=== PATIENT | male | born 1955 | race Caucasian/White ===

== ENCOUNTER 2016-06-04 23:26 | Observation (INO) | payer MEDICARE ==
[~2016-06-04] VITALS: Ht 185.4 cm; Wt 98.0 kg
[2016-06-04 23:29] VITALS: BP 176/86; PULSE 88; RESP 16; TEMP 98.6; O2SAT 97
[2016-06-05] VITALS (9 sets, daily range): BP systolic 152–177; BP diastolic 81–98; PULSE 70–89; RESP 16–20; TEMP 97.7–99; O2SAT 94–100
[2016-06-05 00:58] LABS: AUTOMATED NEUTROPHIL # 3.8 TH/MM3 (1.8-7.7); BASOPHIL % 0.8 % (0.0-2.0); EOSINOPHIL # 0.2 TH/MM3 (0-0.4); EOSINOPHIL % 3.6 % (0.0-4.0); HEMATOCRIT 41.4 % (39.0-51.0); HEMO FLAGS DIFF FINAL; LYMPH % 8.6 % (9.0-44.0); LYMPHOCYTE # 0.4 TH/MM3 (1.0-4.8); MEAN CELL VOLUME 79.3 FL (80.0-100.0); MEAN CORPUSCULAR HEMOGLOBIN 27.7 PG (27.0-34.0); MEAN CORPUSCULAR HGB CONC 34.9 % (32.0-36.0); MONO % 9.2 % (0.0-8.0); NEUT % 77.8 % (16.0-70.0); PLATELET COUNT 170 TH/MM3 (150-450); RED BLOOD COUNT 5.22 MIL/MM3 (4.50-5.90); RED CELL DISTRIBUTION WIDTH 13.5 % (11.6-17.2); WHITE BLOOD COUNT 4.9 TH/MM3 (4.0-11.0)
--- NOTE | 2016-06-05 00:58 | PD ---
HPI Chief Complaint: Chest Pain Time Seen by Provider: 00:14 Travel History International Travel<30 days: No Contact w/Intl Traveler<30days: No Traveled to known affect area: No History of Present Illness HPI The patient is a 60 year old male who presents to the [facility] emergency department with a history of yesterday beginning to have subjective fever, chills, generalized weakness, and malaise. He reports having associated body aches. He reports that today while he was moving some furniture he began to have chest pressure and shortness of breath. He reports that the chest pressure was constant. He reports that he felt weak all over. The patient reports that he year ago he relapsed and has been using IV methamphetamine. He reports that 4 days ago he also had a root canal on the left maxillary molar. He denies being on antibiotic related to this. 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 The patient denies having any cough, congestion, rhinorrhea, sore throat, vomiting, or diarrhea. He reports that his urine has been slightly darker than usual, however he has been increasing his fluid intake. He denies having dysuria, hematuria, urinary urgency or frequency. He denies having any abdominal pain or vomiting. The patient denies any rashes, neck pain, joint swelling, or neurologic symptoms. The patient reports that it possibly 3 hours prior to arrival he did take a BC powder and his symptoms resolved an hour ago. [facility] Past Medical History Narrative Medical The patient's past medical history is significant for depression, hypertension, hyperlipidemia, attention deficit hyperactivity disorder, IV methamphetamine use. Depression: Yes High Cholesterol: Yes Hypertension: Yes Tetanus Vaccination: > 5 Years Influenza Vaccination: No Past Surgical History Narrative Surgical The patient's past surgical history is reportedly none. Surgical History: No Previous Surgery Social History Alcohol Use: Yes (occ) Tobacco Use: Yes (oral tobacco use) Substance Use: Yes (Meth iv pt states 25 years clean until about a year ago) Allergies-Medications (Allergen,Severity, Reaction): Coded Allergies: Propofol (Verified Allergy, Severe, Anaphylaxis, 06/05/16) Review of Systems Except as stated in HPI: all other systems reviewed are Neg General / Constitutional: Positive: Fever, Chills Eyes: No: Visual changes HENT: No: Headaches Cardiovascular: Positive: Chest Pain or Discomfort, Dyspnea on exertion Respiratory: No: Shortness of Breath Gastrointestinal: No: Nausea, Vomiting, Diarrhea, Abdominal Pain Genitourinary: Positive: Decreased Urinary Output, No: Urgency, Frequency, Dysuria, Flank Pain Musculoskeletal: Positive: Myalgias, No: Pain Skin: No Rash Neurologic: No: Weakness, Focal Abnormalities, Change in Mentation, Slurred Speech, Sensory Disturbance Psychiatric: No: Depression Endocrine: No: Polydipsia Hematologic/Lymphatic: No: Easy Bruising Physical Exam Narrative General: The patient is a well-developed well-nourished male in no acute distress. Head and Neck exam: Head is normocephalic atraumatic. Eyes: EOMI, pupils are equal round and reactive to light. Nose: Midline septum with pink mucous membranes Mouth: Dentition unremarkable. On examination of the area of interest, the left maxilla, he points to a molar that recently had a root canal. There is no bernardino abscess formation, no surrounding erythema or edema noted. No tenderness to palpation. Moist mucus membranes. Posterior oropharynx is not erythematous. No tonsillar hypertrophy. Uvula midline. Airway patent. Neck: No palpable lymphadenopathy. No nuchal rigidity. No thyromegaly. Cardiovascular: Regular rate and rhythm without murmurs, gallops, or rubs. Lungs: Clear to auscultation bilaterally. No wheezes, rhonchi, or rales. Abdomen: Soft, without tenderness to palpation in all 4 quadrants of the abdomen. No guarding, rebound, or rigidity. Normal bowel sounds are audible. Extremities: No clubbing, cyanosis, or edema. 2+ pulses in all 4 extremities. Back: No spinous process tenderness to palpation. No costovertebral angle tenderness to palpation. Neurologic Exam: Grossly nonfocal. Skin Exam: No rash noted. Intact skin that is warm and dry. Data Data Last Documented VS Vital Signs Date Time Temp Pulse Resp B/P Pulse Ox O2 Delivery O2 Flow Rate FiO2 06/05/16 00:09 18 100 Room Air 06/04/16 23:29 98.6 88 176/86 Orders Electrocardiogram (06/05/16 00:14) Complete Blood Count With Diff (06/05/16 00:14) Comprehensive Metabolic Panel (06/05/16 00:14) Creatine Kinase (Cpk) (06/05/16 00:14) Ckmb (Isoenzyme) Profile (06/05/16 00:14) Troponin I (06/05/16 00:14) B-Type Natriuretic Peptide (06/05/16 00:14) Prothrombin Time / Inr (Pt) (06/05/16:14) Act Partial Throm Time (Ptt) (06/05/16:14) C-Reactive Protein (Crp) (06/05/16 00:14) Lipase (06/05/16:14) Urinalysis - C+S If Indicated (06/05/16:14) Westergren Sedimentation Rate (06/05/16:14) Magnesium (Mg) (06/05/16 00:14) Chest, Single Ap (06/05/16:14) Iv Access Insert/Monitor (06/05/16:14) Ecg Monitoring (06/05/16:14) Oximetry (06/05/16:14) Drug Screen, Random Urine (06/05/16:14) Lactic Acid Sepsis Protocol (06/05/16 00:14) Blood Culture (06/05/16 00:14) Sodium Chlor 0.9% 1000 Ml Inj (Ns 1000 M (06/05/16 01:00) Vancomycin Inj (Vancomycin Inj) (06/05/16 01:00) Piperacil-Tazo 3.375 Gm Premix (Zosyn 3. (06/05/16 01:00) Sodium Chlorid 0.9% 500 Ml Inj (Ns 500 M (06/05/16 02:15) Admit Order (Ed Use Only) (06/05/16 02:25) Us Abdomen Gallbladder (06/05/16 02:25) Labs Laboratory Tests Test 06/05/16 00:45 White Blood Count 4.9 TH/MM3 Red Blood Count 5.22 MIL/MM3 Hemoglobin 14.5 GM/DL Hematocrit 41.4 % Mean Corpuscular Volume 79.3 FL Mean Corpuscular Hemoglobin 27.7 PG Mean Corpuscular Hemoglobin 34.9 % Concent Red Cell Distribution Width 13.5 % Platelet Count 170 TH/MM3 Mean Platelet Volume 6.8 FL Neutrophils (%) (Auto) 77.8 % Lymphocytes (%) (Auto) 8.6 % Monocytes (%) (Auto) 9.2 % Eosinophils (%) (Auto) 3.6 % Basophils (%) (Auto) 0.8 % Neutrophils # (Auto) 3.8 TH/MM3 Lymphocytes # (Auto) 0.4 TH/MM3 Monocytes # (Auto) 0.4 TH/MM3 Eosinophils # (Auto) 0.2 TH/MM3 Basophils # (Auto) 0.0 TH/MM3 CBC Comment DIFF FINAL Differential Comment Erythrocyte Sedimentation Rate 12 mm/hr Prothrombin Time 11.9 SEC Prothromb Time International 1.1 RATIO Ratio Activated Partial 29.8 SEC Thromboplast Time Sodium Level 137 MEQ/L Potassium Level 3.9 MEQ/L Chloride Level 104 MEQ/L Carbon Dioxide Level 25.1 MEQ/L Anion Gap 8 MEQ/L Blood Urea Nitrogen 8 MG/DL Creatinine 0.95 MG/DL Estimat Glomerular Filtration 81 ML/MIN Rate Random Glucose 111 MG/DL Lactic Acid Level 1.9 mmol/L Calcium Level 8.4 MG/DL Magnesium Level 2.3 MG/DL Total Bilirubin 1.5 MG/DL Aspartate Amino Transf 453 U/L (AST/SGOT) Alanine Aminotransferase 541 U/L (ALT/SGPT) Alkaline Phosphatase 97 U/L Total Creatine Kinase 90 U/L Troponin I LESS THAN 0.02 NG/ML C-Reactive Protein 7.30 MG/DL B-Type Natriuretic Peptide 10 PG/ML Total Protein 6.9 GM/DL Albumin 3.3 GM/DL Lipase 99 U/L [facility] Medical Decision Making Medical Screen Exam Complete: Yes Emergency Medical Condition: Yes Medical Record Reviewed: Yes Interpretation(s) Last Impressions Gall Bladder Ultrasound 06/05/16 0225 Signed Impressions: Service Date/Time: Sunday, June 05, 2016 02:58 - CONCLUSION: 1. Hepatic steatosis. 2. The gallbladder is not well-distended. Otherwise, unremarkable exam. Royer Joseph Jr., MD Chest X-Ray 06/05/16 0014 Signed Impressions: Service Date/Time: Sunday, June 05, 2016 00:34 - CONCLUSION: No acute disease. Royer Joseph Jr., MD Differential Diagnosis Endocarditis, versus sepsis of undetermined origin, versus pneumonia, versus pyelonephritis, versus urinary tract infection, versus prostatitis, versus acute coronary syndrome, versus viral syndrome Narrative Course During the course of the patients emergency department visit, the patients history, examination, and differential diagnosis were reviewed with the patient. The patient had IV access obtained and blood work sent for analysis. The patient was placed on a panel monitor with oximetry and blood pressure monitoring. An EKG was done on arrival. The patient's EKG reveals a sinus rhythm heart rate of 82, borderline left axis deviation, no acute ST segment elevation is noted or depression. The patient was provided normal saline a 1 L bolus was given times one. The patient reports that he took BC powder which contains aspirin, earlier today. The patients laboratory studies were reviewed and remarkable for white count 4.9, hemoglobin 14.5, platelets 170 with neutrophils 77.8, sedimentation rate is 12. CMP is remarkable for glucose 111, total bilirubin 1.5, AST 453, ALT 541 , CPK 90, troponin I less than 0.02, C-reactive protein 7.3, lipase 99, PT PTT unremarkable, urinalysis shows 30 protein, 4 urobilinogen, urine drug screen is positive for opiates, amphetamines, cocaine, cannabinoids. Radiology studies were reviewed and remarkable for a chest x-ray that shows no acute abnormality. An ultrasound of the gallbladder was ordered after liver enzymes were noted to be elevated. Ultrasound reveals a hepatic steatosis, gallbladder wall is not well distended, otherwise unremarkable. The patients results were discussed with the patient, including the plan of care. I explained that further testing and/ or monitoring is indicated based on the patients history, examination, and/ or laboratory findings. Therefore, I recommended admission for additional evaluation. The patient expressed understanding and was agreeable with this plan. The patient was admitted to the hospital in stable condition and sent to a bed under the care of the [facility]. Physician Communication Physician Communication The patient's case was discussed with Dr. Tripp who did agree to admit the patient for further evaluation and treatment at this time. Diagnosis Primary Impression: Chest pain Qualified Code: R07.9 - Chest pain, unspecified type Additional Impression: IV drug abuse Admitting Information Admitting Physician Requests: Xuan Cobos MD Jun 05, 2016 00:58
[2016-06-05] MEDS ORDERED: PIPERACIL-TAZO 3.375 GM PREMIX 50 ML IV ONE (01:00)
[2016-06-05] MEDS ORDERED: SODIUM CHLOR 0.9% 1000 ML INJ 1,000 ML IV ONE (01:00)
[2016-06-05] MEDS ORDERED: VANCOMYCIN INJ 1,000 MG in SODIUM CHLOR 0.9% 250 ML INJ 250 ML IV ONE (01:00)
--- NOTE | 2016-06-05 01:01 | RADRPT ---
EXAM DATE/TIME: 06/05/2016 00:34 [facility] COMPARISON: No previous studies available for comparison. INDICATIONS : Fever. MEDICAL HISTORY : Hypertension. SURGICAL HISTORY : None. ENCOUNTER: Initial ACUITY: 2 days PAIN SCORE: 0/10 LOCATION: Bilateral chest FINDINGS: A single view of the chest demonstrates the lungs to be symmetrically aerated without evidence of mas s, infiltrate or effusion. The cardiomediastinal contours are unremarkable. Osseous structures are intact. CONCLUSION: No acute disease. Royer Joseph Jr., MD on June 05, 2016 at 0:59 Board Certified Radiologist. This report was verified electronically.
[2016-06-05 01:19] LABS: ALT (GPT) 541 U/L (12-78); ANION GAP 8 MEQ/L (5-15); AST (GOT) 453 U/L (15-37); BICARBONATE 25.1 MEQ/L (21.0-32.0); BLOOD UREA NITROGEN 8 MG/DL (7-18); CHLORIDE 104 MEQ/L (98-107); GLOMERULAR FILTRATION RATE 81 ML/MIN (>89); MAGNESIUM 2.3 MG/DL (1.5-2.5); POTASSIUM 3.9 MEQ/L (3.5-5.1); SODIUM (NA) 137 MEQ/L (136-145)
[2016-06-05 01:22] LABS: ALKALINE PHOSPHATASE 97 U/L (45-117); TOTAL BILIRUBIN ADULT 1.5 MG/DL (0.2-1.0)
[2016-06-05 01:31] LABS: APTT (PATIENT) 29.8 SEC (24.3-30.1); INTERNATIONAL NORMALIZED RATIO 1.1 RATIO; PROTHROMBIN TIME - PATIENT 11.9 SEC (9.8-11.6)
[2016-06-05 01:41] LABS: CREATINE KINASE 90 U/L (39-308)
[2016-06-05] MEDS ORDERED: SODIUM CHLORID 0.9% 500 ML INJ 500 ML IV ONE (02:15)
[2016-06-05] MEDS ORDERED: BISACODYL 10 MG SUPP RECTAL PRN (02:45)
[2016-06-05] MEDS ORDERED: ACETAMINOPHEN/HYDROcodone 325 MG/5 MG TAB PO PRN (02:45)
[2016-06-05] MEDS ORDERED: SODIUM CHLORIDE 0.9% FLUSH 10 ML FLUSH IV FLUSH PRN (02:45)
[2016-06-05] MEDS ORDERED: ONDANSETRON HCL 4 MG/2 ML VIAL IVP PRN (02:45)
[2016-06-05] MEDS ORDERED: MORPHINE SULFATE 4 MG/ML INJ IV PRN (02:45)
[2016-06-05] MEDS ORDERED: ACETAMINOPHEN 325 MG TAB PO PRN (02:45)
[2016-06-05] MEDS ORDERED: NITROGLYCERIN 2% OINT 1 GM PACKET TOPICAL PRN (03:00)
--- NOTE | 2016-06-05 03:11 | HHI.HP ---
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 Per pt, had root canal 4 days ago, last night noted generalized weakness and subjective fever/chills. Today states he "put some speed in my coffee" this morning, then later was moving furniture and developed chest pain. He is concerned for possible endocarditis. Last IVDU was 2 days ago. No h/o CAD. On arrival, BP 176/86, HR 88, O2 sat 97% on RA, Afebrile. WBC normal, neutrophil count mildly elevated. Chemistry unremarkable except for GFR 81. Lactic Acid 1.9. LFTs elevated, AST 453, ALT 541, ALP 97, total Bili 1.5. He did. Lipase 99. INR 1.1. CXR with no acute findings. Review of Systems Except as stated in HPI: all other systems reviewed are Neg ROS: 14 point review of systems otherwise negative. Past Family Social History Past Medical History PMH: Major Depression, HTN, Hyperlipidemia, ADHD, h/o Alcohol Abuse, Tobacco Abuse and IVDU w/ Methamphetamine Past Surgical History PAST SURGICAL HISTORY: None Allergies: Coded Allergies: Propofol (Verified Allergy, Severe, Anaphylaxis, 06/05/16) Family History PAST FAMILY HISTORY: Reviewed. No h/o DM or CAD Social History PAST SOCIAL HISTORY: History of alcohol abuse, now drinks 1 6pk per week. + Tobacco, +IVDU w/ Methamphetamine Physical Exam Vital Signs Vital Signs Date Time Temp Pulse Resp B/P Pulse Ox O2 Delivery O2 Flow Rate FiO2 06/05/16 00:09 18 100 Room Air 06/04/16 23:29 98.6 88 16 176/86 97 Room Air Physical Exam PE: GENERAL: Very pleasant middle-aged white male in no acute distress. HEENT: PERRLA, EOMI. No scleral icterus or conjunctival pallor. No lid lag or facial droop. CARDIOVASCULAR: Regular rate and rhythm. No obvious murmurs to auscultation. No chest tenderness to palpation. RESPIRATORY: No obvious rhonchi or wheezing. Clear to auscultation. Breath sounds equal bilaterally. GASTROINTESTINAL: Abdomen soft, non-tender, nondistended. BS normal. MUSCULOSKELETAL: Extremities without clubbing, cyanosis, or edema. No obvious deformities. NEUROLOGICAL: Awake, alert and oriented x4. No focal neurologic deficits. Moving both upper and lower extremities spontaneously. Laboratory Laboratory Tests Test 06/05/16 00:45 White Blood Count 4.9 Red Blood Count 5.22 Hemoglobin 14.5 Hematocrit 41.4 Mean Corpuscular Volume 79.3 Mean Corpuscular Hemoglobin 27.7 Mean Corpuscular Hemoglobin 34.9 Concent Red Cell Distribution Width 13.5 Platelet Count 170 Mean Platelet Volume 6.8 Neutrophils (%) (Auto) 77.8 Lymphocytes (%) (Auto) 8.6 Monocytes (%) (Auto) 9.2 Eosinophils (%) (Auto) 3.6 Basophils (%) (Auto) 0.8 Neutrophils # (Auto) 3.8 Lymphocytes # (Auto) 0.4 Monocytes # (Auto) 0.4 Eosinophils # (Auto) 0.2 Basophils # (Auto) 0.0 CBC Comment DIFF FINAL Differential Comment Erythrocyte Sedimentation Rate 12 Prothrombin Time 11.9 Prothromb Time International 1.1 Ratio Activated Partial 29.8 Thromboplast Time Sodium Level 137 Potassium Level 3.9 Chloride Level 104 Carbon Dioxide Level 25.1 Anion Gap 8 Blood Urea Nitrogen 8 Creatinine 0.95 Estimat Glomerular Filtration 81 Rate Random Glucose 111 Lactic Acid Level 1.9 Calcium Level 8.4 Magnesium Level 2.3 Total Bilirubin 1.5 Aspartate Amino Transf 453 (AST/SGOT) Alanine Aminotransferase 541 (ALT/SGPT) Alkaline Phosphatase 97 Total Creatine Kinase 90 Troponin I LESS THAN 0.02 C-Reactive Protein 7.30 B-Type Natriuretic Peptide 10 Total Protein 6.9 Albumin 3.3 Lipase 99 Date/Time Procedure Status Source Growth 06/05/16 01:05 Aerobic Blood Culture Received Blood Peripheral Pending 06/05/16 01:05 Anaerobic Blood Culture Received Blood Peripheral Pending Result Diagram: 06/05/165 06/05/165 Assessment and Plan Problem List: (1) Chest pain ICD Code: R07.9 Status: Acute (2) IVDU (intravenous drug user) ICD Code: F19.90 Status: Acute (3) Febrile ICD Code: R50.9 Status: Acute (4) Elevated LFTs ICD Code: R94.5 Status: Acute Assessment and Plan A/P: 1. Chest Pain: acute onset of chest pain while moving furniture, no recurrent complaints, initial trop negative, EKG w/ no acute findings. Admit for Observation, telemetry, check serial cardiac enzymes, NTG/Morphine prn if needed. Currently chest pain free. 2. IVDU: w/ Methamphetamines, last use 2 days ago, sober x25yrs, recently relapsed. Ativan prn for withdrawal/agitation. 3. Febrile: reports subjective fever/chills at home following root canal, ? transient bacteremia, however w/ h/o IVDU concern for possible endocarditis. Check Echo, follow up Blood Cultures. 4. Elevated LFTs: AST 453, ALT 541, ALP 97, Total Bili 1.5, no previous labs for comparison however reports LFTs likely elevated from previous Alcohol Abuse. With complaints of chest pain and elevated LFTs will check RUQ US for possible cholecystitis. 5. DVT Prophylaxis: SCD/Teds. 6. Social work for d/c planning as needed. Susan Tripp MD Jun 05, 2016 03:10
[2016-06-05] MEDS: SODIUM CHLOR 0.9% 1000 ML INJ 1,000 ML IV SCH ×3 (03:30→20:06)
--- NOTE | 2016-06-05 04:11 | RADRPT ---
EXAM DATE/TIME: 06/05/2016 02:58 [facility] COMPARISON: No previous studies available for comparison. INDICATIONS : Right upper quadratn pain. MEDICAL HISTORY : Hypercholesterolemia. Hypertension. Depression. SURGICAL HISTORY : None. ENCOUNTER: Initial ACUITY: 3 days PAIN SCORE: 7/10 LOCATION: Right upper quadrant MEASUREMENTS: LIVER: 22.1 cm length COMMON DUCT: 5 mm RIGHT KIDNEY: 13.4 x 6.0 x 7.8 cm FINDINGS: LIVER: Liver is diffusely echogenic. No mass or ductal dilatation. Hepatopedal flow within the portal vein. COMMON DUCT: No intraluminal mass or stone visualized. GALLBLADDER: The gallbladder is not well distended. No stones or sludge observed. Unable to accurately assess the gallbladder wall thickness due to the decompressed state of the gallbladder. No surrounding fluid. PANCREAS: The visualized portions are within normal limits. RIGHT KIDNEY: No evidence of hydronephrosis, stone, or mass. CONCLUSION: 1. Hepatic steatosis. 2. The gallbladder is not well-distended. Otherwise, unremarkable exam. Royer Joseph Jr., MD on June 05, 2016 at 4:07 Board Certified Radiologist. This report was verified electronically.
[2016-06-05 04:58] LABS: BACTERIA, URINE RARE /hpf; BLOOD, URINE NEG (NEG); COMMENT (UR) CULT NOT INDICATED; CULTURE IF INDICATED CULT NOT INDICATED; GLUCOSE,URINE TRACE mg/dL (NEG); KETONE, URINE NEG (NEG); MUCUS URINE FEW /lpf (OCC); NITRITE,URINE NEG (NEG); URINE COLOR DARK-YELLOW (YELLW/STRAW)
[2016-06-05 05:04] LABS: AMPHETAMINE, URINE POS (NEG); BARBITURATES, URINE NEG (NEG); COCAINE, URINE POS (NEG)
[2016-06-05 05:41] LABS: HDL CHOLESTEROL 30.9 MG/DL (40.0-60.0); LDL CHOLESTEROL 62 MG/DL (0-99)
[2016-06-05] MEDS: SODIUM CHLORIDE 0.9% FLUSH 10 ML FLUSH IV FLUSH SCH ×2 (08:08→20:06)
[2016-06-05] MEDS: LORazepam 2 MG/ML VIAL IV PUSH PRN ×2 (08:09→22:11)
--- NOTE | 2016-06-05 08:58 | HHI.PR ---
Subjective Remarks Follow up for chest pain, fevers. The patient is seen s/p IV Ativan, now very drowsy, needs to be constantly awakened throughout examination. He reports feeling much better after the IV Ativan. No further episodes of chest pain today. Denies any shortness of breath, leg swelling, or weight gain. He states the "sweats" have improved. No fevers or chills. Still feels slightly tremulous. He uses IV methamphetamine and drinks a 6 pack of beer 3x/week. He has been using drugs for 1.5years now, previously clean for 25years. He has no other medical complaints at this time. Objective Vitals Vital Signs Date Time Temp Pulse Resp B/P Pulse Ox O2 Delivery O2 Flow Rate FiO2 06/05/16 08:26 99.0 81 18 154/81 96 06/05/16 06:32 18 06/05/16 05:23 98.8 89 20 177/91 95 06/05/16 03:34 76 18 162/91 100 Room Air 06/05/16 03:33 100 Room Air 06/05/16 00:09 18 100 Room Air 06/04/16 23:29 98.6 88 16 176/86 97 Room Air I/O 06/04/16 06/04/16 06/04/16 06/05/16 06/05/16 06/05/16 07:00 15:00 23:00 07:00 15:00 23:00 Intake Total 1460 ml Balance 1460 ml Intake Oral 960 ml IV Total 500 ml # Voids 2 Result Diagram: 06/05/16 0045 06/05/16 0045 Imaging Last Impressions Gall Bladder Ultrasound 06/05/165 Signed Impressions: Service Date/Time: Sunday, June 05, 2016 02:58 - CONCLUSION: 1. Hepatic steatosis. 2. The gallbladder is not well-distended. Otherwise, unremarkable exam. Royer Joseph Jr., MD Chest X-Ray 06/05/16 0014 Signed Impressions: Service Date/Time: Sunday, June 05, 2016 00:34 - CONCLUSION: No acute disease. Royer Joseph Jr., MD Objective Remarks GENERAL: Well-nourished, well-developed middle aged male patient in [facility]. SKIN: Warm and dry. No rash. HEENT: Normocephalic. Atraumatic. Pupils equal and round. No scleral icterus. No injection or drainage. Mucous membranes pink and moist. NECK: Supple. Trachea midline. CARDIOVASCULAR: Regular rate and rhythm. S1, S2 noted. No murmur appreciated. RESPIRATORY: No accessory muscle use. Clear to auscultation. Breath sounds equal bilaterally. GASTROINTESTINAL: Abdomen soft, non-tender, nondistended. Normoactive bowel sounds x4. MUSCULOSKELETAL: No obvious deformities. Extremities without clubbing, cyanosis , or edema. NEUROLOGICAL: Awake and alert. No obvious cranial nerve deficits. Motor grossly within normal limits. Normal speech. PSYCHIATRIC: Appropriate mood and affect; insight and judgment normal. Medications and IVs Current Medications Medications (Trade) Dose Ordered Sig/Ji Route Start Time Stop Time Status Last Admin (NS 1000 ml Inj) 1,000 ml @ 100 mls/hr Q10H IV 06/05/16 02:45 06/05/16 03:30 (NS Flush) 2 ml UNSCH PRN IV FLUSH 06/05/16 02:45 (NS Flush) 2 ml BID IV FLUSH 06/05/16 09:00 (Zofran Inj) 4 mg Q6H PRN IVP 06/05/16 02:45 06/05/16 04:36 (Dulcolax Supp) 10 mg DAILY PRN RECTAL 06/05/16 02:45 (Tylenol) 650 mg Q6H PRN PO 06/05/16 02:45 06/05/16 04:52 (Uehling 5-325 Mg) 1 tab Q4H PRN PO 06/05/16 02:45 (Morphine Inj) 2 mg Q3H PRN IV 06/05/16 02:45 (Ativan Inj) 1 mg Q2H PRN IV PUSH 06/05/16 03:00 06/05/16 08:09 (Nitroglycerin 2% Oint) 0.5 inch Q6HR PRN TOPICAL 06/05/16 03:00 Urinary Catheter: No Vascular Central Line Catheter: No A/P Problem List: (1) Chest pain ICD Code: R07.9 Status: Acute (2) IVDU (intravenous drug user) ICD Code: F19.90 Status: Acute (3) Febrile ICD Code: R50.9 Status: Acute (4) Elevated LFTs ICD Code: R94.5 Status: Acute Assessment and Plan 60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 Atypical Chest Pain: acute onset of chest pain while moving furniture, no recurrent complaints. Monitor on telemetry. Check serial cardiac enzymes, first 2 troponins negative, checking 3rd set, EKG with no acute ischemic changes. NTG/Morphine prn if needed. Currently chest pain free. IVDU: w/ Methamphetamines, last use 2 days ago, sober x25yrs, recently relapsed. Ativan prn for withdrawal/agitation. Febrile: reports subjective fever/chills at home following root canal, ? transient bacteremia, however w/ h/o IVDU concern for possible endocarditis. Check Echo, follow up Blood Cultures. Elevated LFTs: AST 453, ALT 541, ALP 97, Total Bili 1.5, no previous labs for comparison however reports LFTs likely elevated from previous Alcohol Abuse. With complaints of chest pain and elevated LFTs, checked RUQ US which showed hepatic steatosis, otherwise unremarkable. Patient with worsening LFTs today, Consult Gastroenterology. Check hepatitis panel. Alcohol Abuse: reportedly drinks a 6 pack of beer 3x/week. Start CIWA protocol. Thiamine/folate/MV. DVT Prophylaxis: SCD/Teds. Marisol Gasca PA-C Jun 05, 2016 08:58
--- NOTE | 2016-06-05 10:34 | EKG ---
Date Performed: 06/05/2016 Time Performed: 00:27:20 PTAGE: 60 years EKG: Sinus rhythm BORDERLINE LEFT AXIS DEVIATION BORDERLINE ECG NO PREVIOUS TRACING DOCTOR: Issac Rutledge Interpretating Date/Time 06/05/2016 10:32:31
[2016-06-05] MEDS ORDERED: LORazepam 1 MG TAB PO PRN (11:00)
[2016-06-05] MEDS ORDERED: FLUMAZENIL 0.5 MG/5 ML VIAL IV PUSH PRN (11:00)
[2016-06-05] MEDS ORDERED: LORazepam 2 MG/ML VIAL IV PUSH PRN ×4 (11:00)
[2016-06-05] MEDS ORDERED: LORazepam 2 MG TAB PO PRN (11:00)
[2016-06-05] MEDS ORDERED: ENALAPRILAT 1.25 MG/ML VIAL IV PUSH PRN (11:00)
[2016-06-05 13:16] LABS: AUTOMATED NEUTROPHIL # 2.6 TH/MM3 (1.8-7.7); EOSINOPHIL # 0.2 TH/MM3 (0-0.4); EOSINOPHIL % 5.5 % (0.0-4.0); HEMATOCRIT 41.2 % (39.0-51.0); HEMO FLAGS DIFF FINAL; LYMPH % 13.8 % (9.0-44.0); LYMPHOCYTE # 0.5 TH/MM3 (1.0-4.8); MEAN CELL VOLUME 80.1 FL (80.0-100.0); MEAN CORPUSCULAR HEMOGLOBIN 27.4 PG (27.0-34.0); MEAN CORPUSCULAR HGB CONC 34.2 % (32.0-36.0); MONO % 14.4 % (0.0-8.0); NEUT % 65.3 % (16.0-70.0); PLATELET COUNT 128 TH/MM3 (150-450); RED BLOOD COUNT 5.14 MIL/MM3 (4.50-5.90); RED CELL DISTRIBUTION WIDTH 13.7 % (11.6-17.2)
[2016-06-05 13:43] LABS: ALKALINE PHOSPHATASE 93 U/L (45-117); ALT (GPT) 721 U/L (12-78); ANION GAP 10 MEQ/L (5-15); AST (GOT) 654 U/L (15-37); BICARBONATE 25.6 MEQ/L (21.0-32.0); BLOOD UREA NITROGEN 6 MG/DL (7-18); CHLORIDE 103 MEQ/L (98-107); GLOMERULAR FILTRATION RATE 104 ML/MIN (>89); POTASSIUM 3.5 MEQ/L (3.5-5.1); SODIUM (NA) 139 MEQ/L (136-145); TOTAL BILIRUBIN ADULT 2.1 MG/DL (0.2-1.0)
--- NOTE | 2016-06-05 15:23 | EC ---
Study Study Date:06/05/2016 STUDY CONCLUSIONS SUMMARY LEFT VENTRICLE: The cavity size was normal. Wall thickness was normal. Systolic function was normal. The estimated ejection fraction was in the range of 60% to 65%. Wall motion was normal; there were no regional wall motion abnormalities. If LV function is below 40, please consider prescribing an ACEI or ARB or document rationale for non-use. PROCEDURE DATA STUDY STATUS: Elective. Procedure: Transthoracic echocardiography. Image quality was good. Scanning was performed from the parasternal, apical, and subcostal acoustic windows. Study completion: The patient tolerated the procedure well. Transthoracic echocardiography. M-mode, complete 2D, complete spectral Doppler, and color Doppler. Patient status: Inpatient. CARDIAC ANATOMY LEFT VENTRICLE: The cavity size was normal. Wall thickness was normal. Systolic function was normal. The estimated ejection fraction was in the range of 60% to 65%. Wall motion was normal; there were no regional wall motion abnormalities. AORTIC VALVE: Trileaflet; normal thickness leaflets. Doppler: Transvalvular velocity was within the normal range. There was no stenosis. No regurgitation. Peak gradient: 11mm Hg (S). AORTA: Aortic root: The aortic root was normal in size. MITRAL VALVE: Structurally normal valve. Doppler: Transvalvular velocity was within the normal range. There was no evidence for stenosis. No regurgitation. LEFT ATRIUM: The atrium was normal in size. RIGHT VENTRICLE: The cavity size was normal. Wall thickness was normal. PULMONIC VALVE: Doppler: Transvalvular velocity was within the normal range. There was no evidence for stenosis. No regurgitation. TRICUSPID VALVE: Structurally normal valve. Doppler: Transvalvular velocity was within the normal range. Trace regurgitation. PULMONARY ARTERY: The main pulmonary artery was normal-sized. Systolic pressure was within the normal range. RIGHT ATRIUM: The atrium was normal in size. PERICARDIUM: There was no pericardial effusion. SYSTEMIC VEINS: Inferior vena cava: The vessel was normal in size. BASIC MEASUREMENTS ADULT NORMAL Left ventricle LV internal dimension, ED, chordal level, 47.1 mm 43-52 PLAX LV internal dimension, ES, chordal level, 33.4 mm 23-38 PLAX Fractional shortening, chordal level, PLAX *29 % >29 LV posterior wall thickness, ED 9.02 mm IVS/LVPW ratio, ED 0.86 <1.3 Ventricular septum Septal thickness, ED 7.79 mm Aortic valve Leaflet separation 21 mm 15-26 Left atrium Anterior-posterior dimension 39 mm Right ventricle RV internal dimension, ED, PLAX 21.1 mm 19-38 BASIC MEASUREMENTS ADULT NORMAL Aortic valve Leaflet separation 21 mm 15-26 Aorta Root diameter, ED *38 mm 20-37 DOPPLER MEASUREMENTS ADULT NORMAL Main pulmonary artery Pressure, S 19 mm Hg =30 Aortic valve Peak velocity, S 167 cm/s Peak gradient, S 11 mm Hg Mitral valve Peak E-wave velocity 66.1 cm/s Peak A-wave velocity 84.4 cm/s Peak E/A ratio 0.8 Tricuspid valve Regurgitant peak velocity 186 cm/s Peak RV-RA gradient, S 14 mm Hg Maximal regurgitant velocity 186 cm/s Systemic veins Estimated CVP 5 mm Hg Right ventricle RV pressure, S 19 mm Hg <30 LEGEND: Mean values are shown as u=mean value. Asterisk (*) gamez values outside specified normal range. Prepared and signed by Paco Gilliland [id number]
--- NOTE | 2016-06-05 17:06 | PD.CONS ---
HPI History of Present Illness This is a 60 year old [gentleman] who came to the ER for chest pains. Pt is poor historian, somnolent, and is unable to further elaborate, citing inability to recall. He says he may have taken a dilaudid before he came to the ER. Denies abdominalpain, n/v, diarrhea, constipation, change in bowel habits, blood in stool. (Ondina Fisher) PFSH Past Medical History PMH: Major Depression, HTN, Hyperlipidemia, ADHD, h/o Alcohol Abuse, Tobacco Abuse and IVDU w/ Methamphetamine Past Surgical History PAST SURGICAL HISTORY: None (Ondina Fisher) Coded Allergies: Propofol (Verified Allergy, Severe, Anaphylaxis, 06/05/16) Medications Allergies Coded Allergies Type Severity Reaction Last Updated Verified Propofol Allergy Severe Anaphylaxis 06/05/16 Yes Family History PAST FAMILY HISTORY: Reviewed. No h/o DM or CAD Social History PAST SOCIAL HISTORY: History of alcohol abuse, now drinks 1 6pk per week. + Tobacco, +IVDU w/ Methamphetamine (Ondina Fisher) Review of Systems Constitutional: COMPLAINS OF: Fever Eyes: DENIES: Blurred vision Ears, nose, mouth, throat: DENIES: Hearing loss Respiratory: DENIES: Hemoptysis Cardiovascular: DENIES: Lower Extremity Edema Gastrointestinal: DENIES: Abdominal pain, Bloody stools, Constipation, Diarrhea , Nausea, Vomiting (pt somnolent and unable to provide much detail) Neurologic: DENIES: Abnormal gait (Ondina Fisher) GI Exam Vitals I&O Vital Signs Date Time Temp Pulse Resp B/P Pulse Ox O2 Delivery O2 Flow Rate FiO2 06/05/16 12:22 98.0 76 16 152/89 94 06/05/16 09:18 77 06/05/16 08:26 99.0 81 18 154/81 96 06/05/16 06:32 18 06/05/16 05:23 98.8 89 20 177/91 95 06/05/16 03:34 76 18 162/91 100 Room Air 06/05/16 03:33 100 Room Air 06/05/16 00:09 18 100 Room Air 06/04/16 23:29 98.6 88 16 176/86 97 Room Air I/O 406/04/16 06/04/16 06/05/16 06/05/16 06/05/16 07:00 15:00 23:00 07:00 15:00 23:00 Intake Total 1460 ml Balance 1460 ml Intake Oral 960 ml IV Total 500 ml # Voids 2 2 Imaging Last Impressions Gall Bladder Ultrasound 06/05/16 0225 Signed Impressions: Service Date/Time: Sunday, June 05, 2016 02:58 - CONCLUSION: 1. Hepatic steatosis. 2. The gallbladder is not well-distended. Otherwise, unremarkable exam. Royer Joseph Jr., MD Chest X-Ray 06/05/16 0014 Signed Impressions: Service Date/Time: Sunday, June 05, 2016 00:34 - CONCLUSION: No acute disease. Royer Joseph Jr., MD Laboratory Test 06/05/16 06/05/16 06/05/16 06/05/16 00:45 04:03 04:45 12:30 White Blood Count 4.9 TH/MM3 4.0 TH/MM3 Red Blood Count 5.22 MIL/MM3 5.14 MIL/MM3 Hemoglobin 14.5 GM/DL 14.1 GM/DL Hematocrit 41.4 % 41.2 % Mean Corpuscular Volume 79.3 FL 80.1 FL Mean Corpuscular Hemoglobin 27.7 PG 27.4 PG Mean Corpuscular Hemoglobin 34.9 % 34.2 % Concent Red Cell Distribution Width 13.5 % 13.7 % Platelet Count 170 TH/MM3 128 TH/MM3 Mean Platelet Volume 6.8 FL 7.5 FL Neutrophils (%) (Auto) 77.8 % 65.3 % Lymphocytes (%) (Auto) 8.6 % 13.8 % Monocytes (%) (Auto) 9.2 % 14.4 % Eosinophils (%) (Auto) 3.6 % 5.5 % Basophils (%) (Auto) 0.8 % 1.0 % Neutrophils # (Auto) 3.8 TH/MM3 2.6 TH/MM3 Lymphocytes # (Auto) 0.4 TH/MM3 0.5 TH/MM3 Monocytes # (Auto) 0.4 TH/MM3 0.6 TH/MM3 Eosinophils # (Auto) 0.2 TH/MM3 0.2 TH/MM3 Basophils # (Auto) 0.0 TH/MM3 0.0 TH/MM3 CBC Comment DIFF FINAL DIFF FINAL Differential Comment Erythrocyte Sedimentation Rate 12 mm/hr Prothrombin Time 11.9 SEC Prothromb Time International 1.1 RATIO Ratio Activated Partial 29.8 SEC Thromboplast Time Sodium Level 137 MEQ/L 139 MEQ/L Potassium Level 3.9 MEQ/L 3.5 MEQ/L Chloride Level 104 MEQ/L 103 MEQ/L Carbon Dioxide Level 25.1 MEQ/L 25.6 MEQ/L Anion Gap 8 MEQ/L 10 MEQ/L Blood Urea Nitrogen 8 MG/DL 6 MG/DL Creatinine 0.95 MG/DL 0.76 MG/DL Estimat Glomerular Filtration 81 ML/MIN 104 ML/MIN Rate Random Glucose 111 MG/DL 111 MG/DL Lactic Acid Level 1.9 mmol/L Calcium Level 8.4 MG/DL 8.6 MG/DL Magnesium Level 2.3 MG/DL Total Bilirubin 1.5 MG/DL 2.1 MG/DL Aspartate Amino Transf 453 U/L 654 U/L (AST/SGOT) Alanine Aminotransferase 541 U/L 721 U/L (ALT/SGPT) Alkaline Phosphatase 97 U/L 93 U/L Total Creatine Kinase 90 U/L Troponin I LESS THAN 0.02 LESS THAN 0.02 LESS THAN 0.02 NG/ML NG/ML NG/ML C-Reactive Protein 7.30 MG/DL B-Type Natriuretic Peptide 10 PG/ML Total Protein 6.9 GM/DL 6.1 GM/DL Albumin 3.3 GM/DL 2.9 GM/DL Lipase 99 U/L Triglycerides Level 150 MG/DL Cholesterol Level 123 MG/DL LDL Cholesterol 62 MG/DL HDL Cholesterol 30.9 MG/DL Cholesterol/HDL Ratio 3.98 RATIO Urine Color DARK-YELLOW Urine Turbidity CLEAR Urine pH 6.0 Urine Specific Waddy 1.026 Urine Protein 30 mg/dL Urine Glucose (UA) TRACE mg/dL Urine Ketones NEG mg/dL Urine Occult Blood NEG Urine Nitrite NEG Urine Bilirubin NEG Urine Urobilinogen 4.0 MG/DL Urine Leukocyte Esterase NEG Urine RBC LESS THAN 1 /hpf Urine WBC 3 /hpf Urine Bacteria RARE /hpf Urine Mucus FEW /lpf Microscopic Urinalysis Comment CULT NOT INDICATED Urine Opiates Screen POS Urine Barbiturates Screen NEG Urine Amphetamines Screen POS Urine Benzodiazepines Screen NEG Urine Cocaine Screen POS Urine Cannabinoids Screen POS Date/Time Procedure Status Source Growth 06/05/16 01:05 Aerobic Blood Culture Received Blood Peripheral Pending 06/05/16 01:05 Anaerobic Blood Culture Received Blood Peripheral Pending Physical Examination HEENT: EOMI; normocephalic; atraumatic; no jaundice. NECK: Neck is supple, no JVD, no lymphadenopathy. CHEST: Chest is clear to auscultation and percussion. CARDIAC: Regular rate and rhythm with no murmur gallop or rubs. ABDOMEN: Soft, obese, nontender; no hepatosplenomegaly; bowel sounds are present in all four quadrants. EXTREMITIES: No clubbing, cyanosis, or edema. SKIN: Diaphoretic; no rash; no jaundice. RN CHRONIC: No focal deficits; alert and oriented times three. (Ondina Fisher) Assessment and Plan Plan ASSESSMENT: - elevated LFTs. tox screen pos for multiple substances so likely related to drug use but will order liver work up to r/o other etiology PLAN: - hepatitis panel - NAS, ASMA, MA - iron studies - US RUQ This pt was seen by myself and Dr Cordon and this note is written on his behalf (Ondina Fisher) Physician Comments Seen and examined with REX, liver baxter initiated. U/S shows fatty liver. Has heavy h/o etoh and drug abuse. Will follow. Thank you (Mahad Cordon MD) Ondina Fisher Jun 05, 2016 17:06 Mahad Cordon MD Jun 05, 2016 18:07
[2016-06-06 00:20] VITALS: BP 149/67; PULSE 73; RESP 20; TEMP 98.6; O2SAT 96
[2016-06-06 04:11] VITALS: BP 160/96; PULSE 67; RESP 20; TEMP 97.9; O2SAT 98
[2016-06-06 05:11] LABS: HEMATOCRIT 41.1 % (39.0-51.0); MEAN CELL VOLUME 79.9 FL (80.0-100.0); MEAN CORPUSCULAR HEMOGLOBIN 28.2 PG (27.0-34.0); MEAN CORPUSCULAR HGB CONC 35.2 % (32.0-36.0); PLATELET COUNT 135 TH/MM3 (150-450); RED BLOOD COUNT 5.14 MIL/MM3 (4.50-5.90); RED CELL DISTRIBUTION WIDTH 13.7 % (11.6-17.2); WHITE BLOOD COUNT 3.4 TH/MM3 (4.0-11.0)
[2016-06-06 05:19] LABS: HEMO FLAGS AUTO DIFF
[2016-06-06 05:40] LABS: FERRITIN 382 NG/ML (26-388); TRANSFERRIN IRON PROFILE 178 MG/DL (200-360)
[2016-06-06 05:46] LABS: ALT (GPT) 908 U/L (12-78); ANION GAP 9 MEQ/L (5-15); AST (GOT) 683 U/L (15-37); BICARBONATE 27.5 MEQ/L (21.0-32.0); BLOOD UREA NITROGEN 8 MG/DL (7-18); CHLORIDE 106 MEQ/L (98-107); GLOMERULAR FILTRATION RATE 90 ML/MIN (>89); POTASSIUM 3.6 MEQ/L (3.5-5.1); SODIUM (NA) 142 MEQ/L (136-145)
[2016-06-06 05:49] LABS: ALKALINE PHOSPHATASE 112 U/L (45-117); TOTAL BILIRUBIN ADULT 1.9 MG/DL (0.2-1.0)
[2016-06-06 07:51] LABS: BANDS 2 % (0-6); BASOPHILS 1 % (0-2); EOSINOPHILS 9 % (0-4); NEUTROPHIL # MANUAL DIFF 1.8 TH/MM3 (1.8-7.7); PLATELET ESTIMATE SMEAR LOW (NORMAL); PLATELET MORPHOLOGY NORMAL (NORMAL); POLYS (SEG NEUTROPHILS) 52 % (16-70); WBC DIFF SAMPLE 100
[2016-06-06 07:52] LABS: SCAN/DIFF FINAL DIFF MANUAL
[2016-06-06 08:26] VITALS: BP 158/93; PULSE 73; RESP 16; TEMP 97.8; O2SAT 95
[2016-06-06] MEDS: SODIUM CHLORIDE 0.9% FLUSH 10 ML FLUSH IV FLUSH SCH (08:40)
[2016-06-06] MEDS: SODIUM CHLOR 0.9% 1000 ML INJ 1,000 ML IV SCH (08:45)
[2016-06-06] MEDS ORDERED: THIAMINE HCL 100 MG TAB PO SCH (09:00)
[2016-06-06] MEDS ORDERED: FOLIC ACID 1 MG TAB PO SCH (09:00)
[2016-06-06] MEDS ORDERED: MULTIVITAMINS/MINERALS THERAPEUTIC TAB PO SCH (09:00)
--- NOTE | 2016-06-06 09:22 | HHI.PR ---
Subjective Remarks Follow up for chest pain. The patient denies any further chest pain. Denies fevers or chills but does report sweats overnight. He is able to tolerate oral intake. Denies abdominal pain. He is interested in alcohol/drug rehab centers. Seen with his sister at bedside. Objective Vitals Vital Signs Date Time Temp Pulse Resp B/P Pulse Ox O2 Delivery O2 Flow Rate FiO2 06/06/16 08:26 97.8 73 16 158/93 95 06/06/16 04:11 97.9 67 20 160/96 98 06/06/16 00:20 98.6 73 20 149/67 96 06/05/16 22:55 78 06/05/16 20:09 98.7 74 20 159/93 97 06/05/16 17:27 97.7 70 16 156/98 97 06/05/16 12:22 98.0 76 16 152/89 94 06/05/16 09:18 77 I/O 06/05/16 06/05/16 06/05/16 06/06/16 06/06/16 06/06/16 07:00 15:00 23:00 07:00 15:00 23:00 Intake Total 1460 ml Balance 1460 ml Intake Oral 960 ml IV Total 500 ml # Voids 2 2 2 Result Diagram: 06/06/16 0359 06/06/16 0359 Imaging Last Impressions Gall Bladder Ultrasound 06/05/16 0225 Signed Impressions: Service Date/Time: Sunday, June 05, 2016 02:58 - CONCLUSION: 1. Hepatic steatosis. 2. The gallbladder is not well-distended. Otherwise, unremarkable exam. Royer Joseph Jr., MD Chest X-Ray 06/05/16 0014 Signed Impressions: Service Date/Time: Sunday, June 05, 2016 00:34 - CONCLUSION: No acute disease. Royer Joseph Jr., MD Objective Remarks GENERAL: Well-nourished, well-developed middle aged male patient in [facility]. SKIN: Warm and dry. Eczematous rash on the face. HEENT: Normocephalic. Atraumatic. Pupils equal and round. No scleral icterus. No injection or drainage. Mucous membranes pink and moist. NECK: Supple. Trachea midline. CARDIOVASCULAR: Regular rate and rhythm. S1, S2 noted. No murmur appreciated. RESPIRATORY: No accessory muscle use. Clear to auscultation. Breath sounds equal bilaterally. GASTROINTESTINAL: Abdomen soft, non-tender, nondistended. Normoactive bowel sounds x4. MUSCULOSKELETAL: No obvious deformities. Extremities without clubbing, cyanosis , or edema. NEUROLOGICAL: Awake and alert. No obvious cranial nerve deficits. Motor grossly within normal limits. Normal speech. PSYCHIATRIC: Appropriate mood and affect; insight and judgment normal. Medications and IVs Current Medications Medications (Trade) Dose Ordered Sig/Ji Route Start Time Stop Time Status Last Admin (NS 1000 ml Inj) 1,000 ml @ 100 mls/hr Q10H IV 06/05/16 02:45 06/05/16 13:27 (NS Flush) 2 ml UNSCH PRN IV FLUSH 06/05/16 02:45 (NS Flush) 2 ml BID IV FLUSH 06/05/16 09:00 06/06/16 08:40 (Zofran Inj) 4 mg Q6H PRN IVP 06/05/16 02:45 06/05/16 04:36 (Dulcolax Supp) 10 mg DAILY PRN RECTAL 06/05/16 02:45 (Tylenol) 650 mg Q6H PRN PO 06/05/16 02:45 06/05/16 04:52 ([place] 5-325 Mg) 1 tab Q4H PRN PO 06/05/16 02:45 (Morphine Inj) 2 mg Q3H PRN IV 06/05/16 02:45 (Ativan Inj) 1 mg Q2H PRN IV PUSH 06/05/16 03:00 06/05/16 22:11 (Nitroglycerin 2% Oint) 0.5 inch Q6HR PRN TOPICAL 06/05/16 03:00 (Romazicon Inj) 0.2 mg Q1M PRN IV PUSH 06/05/16 11:00 (Ativan) 1 mg Q4H PRN PO 06/05/16 11:00 06/05/16 15:25 (Ativan Inj) 1 mg Q4H PRN IV PUSH 06/05/16 11:00 (Ativan) 2 mg Q2H PRN PO 06/05/16 11:00 (Ativan Inj) 2 mg Q2H PRN IV PUSH 06/05/16 11:00 (Ativan Inj) 2 mg Q1H PRN IV PUSH 06/05/16 11:00 (Ativan Inj) 2 mg Q15M PRN IV PUSH 06/05/16 11:00 (Vasotec Inj) 1.25 mg Q6H PRN IV PUSH 06/05/16 11:00 (Folate) 1 mg DAILY PO 06/06/16 09:00 06/11/16 08:59 06/06/16 08:39 (Vitamin B1) 100 mg DAILY PO 06/06/16 09:00 06/06/16 08:39 (Theragran M Tab) 1 tab DAILY PO 06/06/16 09:00 06/11/16 08:59 06/06/16 08:39 Urinary Catheter: No Vascular Central Line Catheter: No A/P Problem List: (1) Chest pain ICD Code: R07.9 Status: Acute (2) IVDU (intravenous drug user) ICD Code: F19.90 Status: Acute (3) Febrile ICD Code: R50.9 Status: Acute (4) Elevated LFTs ICD Code: R94.5 Status: Acute Assessment and Plan 60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 Atypical Chest Pain: acute onset of chest pain while moving furniture, no recurrent complaints. Possibly related to cocaine/methamphetamine use. Monitor on telemetry. ACS ruled out with negative serial cardiac enzymes, EKG with no acute ischemic changes. NTG/Morphine prn if needed. Currently chest pain free. IVDU: w/ Methamphetamines, last use 2 days ago, sober x25yrs, recently relapsed for the past year. Ativan prn for withdrawal/agitation. Case management provided list of rehab centers. Febrile: reports subjective fever/chills at home following root canal, ? transient bacteremia, however w/ h/o IVDU concern for possible endocarditis. Echo normal EF 60-65%, no vegetations. Blood Cultures with NGTD. Afebrile throughout admission. Elevated LFTs: AST 453, ALT 541, ALP 97, Total Bili 1.5, no previous labs for comparison however reports LFTs likely elevated from Drug/Alcohol Abuse. With complaints of chest pain and elevated LFTs, checked RUQ US which showed hepatic steatosis, otherwise unremarkable. Patient with slightly worsening LFTs, Consulted Gastroenterology, appreciate recommendations. Hepatitis panel with + hep C antibody. Repeat CMP in am. Alcohol Abuse: reportedly drinks a 6 pack of beer 3x/week. Started CIWA protocol. Thiamine/folate/MV. DVT Prophylaxis: SCD/Teds. Written by Marisol Gasca, acting as scribe for Dr. Gallego on 06/06/16 at 09:21. All or portions of this note were transcribed by scribe ANDRESSA Winter. I , Dr. Moses Gallego personally performed the history, physical exam, and medical decision making; and confirmed the accuracy of the information in the transcribed note. Authenticated by Dr. Moses Gallego on 06/06/16 at 23:46. AMA discharge patient to home Condition on discharge: Improved, further work up pending. Patient left against medical advice. Regular Diet as tolerated Ad Dora activity Rx written: Thiamine Follow-up with primary care physician, psychiatry, GI, drug/alcohol rehab. Discharge Planning 1700hrs- Patient requesting to be discharged. Discussed with GI BACTERIOLOGIST INDUSTRIAL, not yet cleared for discharge, prefer LFTs to trend down prior to discharge. Discussed with RN. Problem Qualifiers (1) Chest pain: Qualified Code: R07.9 - Chest pain, unspecified type Marisol Gasca PA-C Jun 06, 2016 09:22 Jenniffer Gallego DO Jun 06, 2016 23:48
--- NOTE | 2016-06-06 10:44 | HHI.GIFU ---
Subjective Remarks Resting in bed. No n/v. No abdominal pain. States that he has had antibodies for HCV in the past, but had a undetectable viral load. Objective Vitals I&O Vital Signs Date Time Temp Pulse Resp B/P Pulse Ox O2 Delivery O2 Flow Rate FiO2 06/06/16 08:26 97.8 73 16 158/93 95 06/06/16 04:11 97.9 67 20 160/96 98 06/06/16 00:20 98.6 73 20 149/67 96 06/05/16 22:55 78 06/05/16 20:09 98.7 74 20 159/93 97 06/05/16 17:27 97.7 70 16 156/98 97 06/05/16 12:22 98.0 76 16 152/89 94 I/O 06/05/16 06/05/16 06/05/16 06/06/16 06/06/16 06/06/16 07:00 15:00 23:00 07:00 15:00 23:00 Intake Total 1460 ml Balance 1460 ml Intake Oral 960 ml IV Total 500 ml # Voids 2 2 2 Laboratory Laboratory Tests Test 06/05/16 06/06/16 12:30 03:59 White Blood Count 4.0 3.4 Red Blood Count 5.14 5.14 Hemoglobin 14.1 14.5 Hematocrit 41.2 41.1 Mean Corpuscular Volume 80.1 79.9 Mean Corpuscular Hemoglobin 27.4 28.2 Mean Corpuscular Hemoglobin 34.2 35.2 Concent Red Cell Distribution Width 13.7 13.7 Platelet Count 128 135 Mean Platelet Volume 7.5 7.7 Neutrophils (%) (Auto) 65.3 Lymphocytes (%) (Auto) 13.8 Monocytes (%) (Auto) 14.4 Eosinophils (%) (Auto) 5.5 Basophils (%) (Auto) 1.0 Neutrophils # (Auto) 2.6 Lymphocytes # (Auto) 0.5 Monocytes # (Auto) 0.6 Eosinophils # (Auto) 0.2 Basophils # (Auto) 0.0 CBC Comment DIFF FINAL AUTO DIFF Differential Comment FINAL DIFF MANUAL Sodium Level 139 142 Potassium Level 3.5 3.6 Chloride Level 103 106 Carbon Dioxide Level 25.6 27.5 Anion Gap 10 9 Blood Urea Nitrogen 6 8 Creatinine 0.76 0.86 Estimat Glomerular Filtration 104 90 Rate Random Glucose 111 90 Calcium Level 8.6 8.6 Total Bilirubin 2.1 1.9 Aspartate Amino Transf 654 683 (AST/SGOT) Alanine Aminotransferase 721 908 (ALT/SGPT) Alkaline Phosphatase 93 112 Troponin I LESS THAN 0.02 Total Protein 6.1 6.5 Albumin 2.9 2.9 Differential Total Cells 100 Counted Neutrophils % (Manual) 52 Band Neutrophils % 2 Lymphocytes % 22 Monocytes % 14 Eosinophils % 9 Basophils % 1 Neutrophils # (Manual) 1.8 Platelet Estimate LOW Platelet Morphology Comment NORMAL Red Cell Morphology Comment NORMAL Iron Level 40 Total Iron Binding Capacity 249 Percent Iron Saturation 16.1 Ferritin 382 Tumor Marker Alpha Fetoprotein 2.3 Date/Time Procedure Status Source Growth 06/05/16 01:05 Aerobic Blood Culture Received Blood Peripheral Pending 06/05/16 01:05 Anaerobic Blood Culture Received Blood Peripheral Pending Imaging Last Impressions Gall Bladder Ultrasound 06/05/16 0225 Signed Impressions: Service Date/Time: Sunday, June 05, 2016 02:58 - CONCLUSION: 1. Hepatic steatosis. 2. The gallbladder is not well-distended. Otherwise, unremarkable exam. Royer Joseph Jr., MD Chest X-Ray 06/05/16 0014 Signed Impressions: Service Date/Time: Sunday, June 05, 2016 00:34 - CONCLUSION: No acute disease. Royer Joseph Jr., MD Physical Exam HEENT: Normocephalic; atraumatic; no jaundice. CHEST: CTA CARDIAC: RRR ABDOMEN: Soft, nondistended, nontender; no hepatosplenomegaly; bowel sounds are present in all four quadrants. EXTREMITIES: No clubbing, cyanosis, or edema. SKIN: Normal; no rash; no jaundice. 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 Assessment and Plan Plan ASSESSMENT: - Elevated LFTs. Pt with PSA with recent ETOH use. Reports that he has recently shared needles with other people. Gall Bladder Ultrasound (06/05/16)---> 1. Hepatic steatosis. 2. The gallbladder is not well- distended. Otherwise, unremarkable exam. He reports that he was not NPO for this exam. Hepatitis panel negative, NAS negative. AMA negative. ASMA negative. Alpha 1 Antitrypsin pending, Ceruloplasmin pending, AFP 2.3. Iron Saturation 16.1%, Ferritin 382. LFTs persistently elevated with T. Bili 1.9, AST 683, ALT 908, Alk Phosph 112. Likely this is related to PSA, but will await liver workup to rule out underlying liver disease. PLAN: - TAMERA - Await Hepatitis Panel - Await NAS, AMA, ASMA - Await Ceruloplasmin, Alpha 1 Antitrypsin - Monitor LFTs - Avoid hepatotoxins - Complete drug/etoh cessation - Pt seen by myself and Dr. Younger and this note is written on his behalf Elina Yun Jun 06, 2016 10:44
[2016-06-06 11:52] VITALS: BP 183/82; PULSE 70; RESP 18; TEMP 97.8; O2SAT 95
[2016-06-06 15:30] VITALS: BP 145/94; PULSE 69; RESP 14; TEMP 97.8; O2SAT 98
[2016-06-06] MEDS ORDERED: VITA100T2 PO (15:47)
--- NOTE | 2016-06-06 15:48 | HHI.DCPOC ---
Discharge Care Plan Diagnosis: (1) Chest pain (2) Elevated LFTs (3) Hepatitis C antibody test positive (4) IVDU (intravenous drug user) Goals to Promote Your Health * To prevent worsening of your condition and complications * To maintain your health at the optimal level Directions to Meet Your Goals Take your medications as prescribed Follow your dietary instruction Follow activity as directed Keep your appointments as scheduled Take your immunizations and boosters as scheduled If your symptoms worsen call your PCP, if no PCP go to Urgent Care Center or Emergency Room Smoking is Dangerous to Your Health. Avoid second hand smoke Call the 24-hour hour crisis hotline for domestic abuse at Marisol Gasca PA-C Jun 06, 2016 3:48 pm
[2016-06-09 15:54] LABS: MITOCHONDRIAL ABS LESS THAN 20.0 U (())
== END 2016-06-06 20:00 | disposition left against medical advice (07) ==
LOC: NEPC 23:26 → NEDA 06-05 02:28 → NEPGCP 06-05 04:29 → NEDA 06-05 21:00 → NEPGCP 06-05 21:00
PROVIDERS: ADMIT Hospitalist; ATTEND Hospitalist
DX: R07.89 Other chest pain (principal); R50.9 Fever, unspecified; R79.89 Other specified abnormal findings of blood chemistry; I10 Essential (primary) hypertension; F10.10 Alcohol abuse, uncomplicated; E78.5 Hyperlipidemia, unspecified; F90.9 Attention-deficit hyperactivity disorder, unspecified type; F32.9 Major depressive disorder, single episode, unspecified; E78.00 Pure hypercholesterolemia, unspecified; F19.10 Other psychoactive substance abuse, uncomplicated; F17.200 Nicotine dependence, unspecified, uncomplicated; Z88.8 Allergy status to other drugs, medicaments and biological substances
CPT/HCPCS: 71010; 76705; 76937; 80053; 80061; 80074; 80307; 81001; 82103; 82105; 82390; 82550; 82728; 82948; 83520; 83540; 83550; 83605; 83690; 83735; 83880; 84484; 85007; 85025; 85027; 85610; 85652; 85730; 86038; 86140; 86256; 87040; 93005; 93306; 96374; 99285; G0378; J2060; J2405; J2543; J3370; J7030; J7040; J7050